=== PATIENT | female | born 1970 | race Caucasian/White ===

== ENCOUNTER 2020-12-16 05:11 | Emergency (ER) | payer OTHER, SELFPAY ==
[2020-12-16 07:48] VITALS: BP 186/85; PULSE 75; RESP 18; TEMP 37; O2SAT 97; BMI 40.2
--- NOTE | 2020-12-16 08:47 | ED.EAR ---
HPI - Ear Problem General Chief complaint: Ear Problems Stated complaint: ear pain Time Seen by Provider: 12/16/20 08:35 Source: patient Mode of arrival: ambulatory Limitations: no limitations History of Present Illness HPI Narrative: Patient presents to ED for left ear pain. Patient states her left ear in ears seem swollen. Admits to swimming on Saturday since then having left ear pain. Patient denies any discharge from the ear. Patient admits to slight fever. Patient had COVID swab yesterday that was negative. MD Complaint: ear pain Location: left ear Related Data Previous Rx's Medication Instructions Recorded naproxen 500 mg tablet 500 mg PO BID PRN #20 tab 12/16/20 [id number] 3.3 4 drp OTIC (EAR) LEFT TID 7 Days 12/16/20 mg-3 mg-10 mg-0.5 mg/mL ear #10 ml drops,susp (Cortisporin-TC) Allergies Allergy/AdvReac Type Severity Reaction Status Date / Time No Known Allergies Allergy Verified 12/16/20 07:52 Review of Systems Review of Systems: Yes all other systems are reviewed and are negative Constitutional: Constitutional: Reports as per HPI, Reports no additional constitutional complaints and Reports fever(s) Eyes: Eyes: Reports as per HPI and Reports no additional eye complaints ENT: Reports system reviewed and no additional complaints, except as documented, Reports as per HPI and Reports otalgia Cardiovascular: Cardiovascular: Reports as per HPI and Reports no additional cardiovascular complaints Respiratory: Respiratory: Reports as per HPI and Reports no additional respiratory complaints Gastrointestinal: Gastrointestinal: Reports as per HPI and Reports no additional gastrointestinal complaints Musculoskeletal: Musculoskeletal: Reports no additional musculoskeletal complaints and Reports as per HPI Integumentary/Breasts: Skin/Breast: Reports system reviewed and no additional complaints, except as docu and Reports as per HPI Neurologic: Reports system reviewed and no additional complaints, except as documented and Reports as per HPI Psychiatric: Psychiatric: Reports no additional psychiatric complaints and Reports as per HPI [facility] Past Medical History Medical History (Updated 12/16/20 @ 08:55 by SOFIA Rucker) HTN (hypertension) Social History Social History Advance Directives: No Advance Directives Information Provided: Yes Physical Exam Vital Signs: Vital Signs: Last Vital Signs Temp 98.6 F 12/16/20 07:48 Pulse 75 12/16/20 07:48 Resp 18 08/20/21 07:48 BP 199/110 H 12/16/20 09:00 Pulse Ox 97 12/16/20 07:48 Body Mass Index 40.2 Const: General: cooperative, healthy appearing, comfortable, no acute distress, well developed, alert, awake and Physically active Orientation/consciousness: patient oriented x3 HENMT: Head: Yes normal to inspection, Yes No palpable skull fracture present, Yes normocephalic and Yes atraumatic Ears: hearing grossly normal bilaterally, external ears normal, TM normal on the right, mastoids normal, no periauricular adenopathy, Abnormal EAC present (Swollen) and unable to visualize TM (right ear) on the right Eyes: General: appearance normal, both eyes and all related structures Neck: Neck: Yes normal visual inspection, Yes full ROM, Yes no lymphadenopathy, Yes no meningeal signs, Yes trachea midline, Yes supple and No tender Chest: Chest palpation & inspection: normal inspection of the chest and normal palpation of entire chest wall Resp: Effort & Inspection: normal respiratory effort and able to speak in complete sentences Auscultation: clear to auscultation bilaterally Cardio: Jugular venous distension: no JVD Heart sounds: S1 normal heart sound present and S2 normal heart sound present GI: Inspection: Yes normal to inspection and No abdominal wall ecchymosis Palpation (GI): Soft to palpation, not firm, nontender, no guarding and not rigid : General: No CVA tenderness and Yes no CVA tenderness Back/Spine/Pelvis: Back: no CVA tenderness, No CVA tenderness and No back tenderness Skin: General skin exam: no rashes or lesions noted and elasticity normal Neuro: General: patient oriented x3, gait normal, no meningeal signs and CN's II-XI intact bilaterally Cranial nerves: Yes CN's II-XII intact bilaterally Extrem: General: Yes normal to inspection and Yes full ROM Psych: Appearance: grossly normal, well kempt and not disheveled Course Course Course Narrative: Otitis externa. Reevaluation(s) Reevaluation #1: History physical exam indicate otitis externa. Patient patient was severely hypertensive. Patient inform myself and nurse that she is not compliant with her blood pressure medication. Patient informed due to elevated blood pressure we will need to do medical evaluation including head CT scan labs and EKG to make sure there is no hypertensive emergency. Patient informed he could from hypertensive emergency, but patient refused to be evaluated and states she would start taking her medications at home and follow with the primary care doctor. Patient signed against medical advice understanding risk of from hypertensive emergency. Time: 20:53 MDM - Ear MDM Narrative Medical decision making narrative: Otitis externa Discharge Plan Discharge Clinical Impression: Otitis externa Patient Disposition: Left Against Medical Advice Instructions: Otitis Externa (ED), Hypertension (ED) Additional Instructions: History physical exam indicate otitis externa. He will be discharged with ear drops. Return to the ED immediately for mastoid erythema swelling, severe ear pain, discharge from the ear, intractable fever, chills, weakness, dizziness, headache, or any other concerning symptoms. Your blood pressure is high and uncontrollabe. Please follow up with your PCP. Prescriptions: New Cortisporin-TC 3.3-3-10-0.5 mg/mL drops,suspension 4 drp otic (ear) left TID 7 Days Qty: 10 RF: 0 naproxen 500 mg tablet 500 mg PO BID PRN (Reason: pain) Qty: 20 RF: 0 Stand Alone Forms: Against Medical Advice Interventions: ED Discharge Assessment Last Done: 12/16/20 09:39 Discharge Date/Time: 12/16/20 09:40 Print Language: Ukrainian
[2020-12-16] MEDS: Ibuprofen 800 MG TABLET PO (08:55)
[2020-12-16 09:00] VITALS: BP 199/110
== END 2020-12-16 09:40 | disposition left against medical advice (07) ==
PROVIDERS: Emergency Provider Internal Medicine
DX: H60.92 Unspecified otitis externa, left ear (principal); H92.02 Otalgia, left ear; I10 Essential (primary) hypertension; Z91.14 Patient's other noncompliance with medication regimen
CPT/HCPCS: 99283; 99284